=== PATIENT | male | born 1945 | race Caucasian/White ===

== ENCOUNTER 2018-04-04 06:10 | Day surgery (SDC) | payer BC ==
[2018-04-03 11:31] VITALS: BMI 27.3
[~2018-04-04 06:10] MED LIST: BUPIVACAINE HCL/PF (5 MG/ML) 30 ML VIAL IJ ONE
[2018-04-04] MEDS ORDERED: LIDOCAINE 1%/EPI 1:100000 (20 ML MULTI DOSE VIAL) ONE (07:36)
[2018-04-04] MEDS ORDERED: BUPIVACAINE HCL/PF 0.5% (5MG/ML) 10 ML VIAL ONE (07:37)
[2018-04-04] MEDS ORDERED: LIDOCAINE HCL/PF 2% SDV 5ML VIAL ONE (07:54)
[2018-04-04] MEDS ORDERED: KETOROLAC TROMETHAMINE 30 MG/1 ML VIAL ONE (07:54)
[2018-04-04] MEDS ORDERED: PROPOFOL 20 ML ONE ×2 (07:55)
[2018-04-04] MEDS ORDERED: MIDAZOLAM HCL 2 MG/2 ML SINGLE DOSE VIAL ONE (07:55)
--- NOTE | 2018-04-04 08:03 | HP ---
[facility] - Chief Complaint Chief Complaint: R KNEE PAIN History Source: Patient - Past Medical History Allergies/Adverse Reactions: Allergies Allergy/AdvReac Type Severity Reaction Status Date / Time allopurinol Allergy Intermediate Rash Verified 04/03/18 11:31 - Current Medications Current Medications: Home Medications Medication Instructions Recorded Aspirin [ASA -] 650 mg PO PRN PRN 04/03/18 Febuxostat [Uloric -] 80 mg PO UTDICT 04/03/18 [facility] Physical Exam - Physical Examination Vital Signs: Vital Signs Period Temp Pulse Resp BP Sys/Vance Pulse Ox Last 24 Hr 97.7 F-97.7 F 69-69 20-20 157-157/94-94 96 Extremities: Other (+ R JOINT LINE TENDERNESS) [facility] Impression/Plan - Impression/Plan Impression: INTERNAL DERANGEMENT R KNEE Operative Procedure: ARTHROSCOPY R KNEE Date to be Performed: 04/04/18
[2018-04-04] MEDS ORDERED: LIDOCAINE 2%/EPINEPHRINE 1:100000 (50 ML MD VIAL) PNB ONE (08:22)
[2018-04-04] MEDS ORDERED: DEXAMETHASONE SOD PHOSPHATE 4 MG/1 ML VIAL ONE (08:23)
[2018-04-04] MEDS ORDERED: ACETAMINOPHEN 500 MG TABLET (FP) PO PRN (08:52)
[2018-04-04] MEDS ORDERED: oxyCODONE HCL 5 MG TABLET PO PRN (08:52)
[2018-04-04] MEDS ORDERED: ONDANSETRON 4 MG/2 ML VIAL IVPUSH PRN (08:52)
--- NOTE | 2018-04-04 08:56 | OP ---
Operative Note - Note: Operative Date: 04/04/18 Pre-Operative Diagnosis: INETRNAL DERANGEMENT R KNEE Operation: ARTHROSCOPY RIGHT KNEE WITH PARTIAL MM AND LM Post-Operative Diagnosis: Same as Pre-op Surgeon: Otto Roa Anesthesia: General Operative Report Dictated: Yes
[2018-04-04] MEDS ORDERED: LACTATED RINGERS SOLUTION 1,000 ML IV SCH (09:00)
[2018-04-04 09:29] VITALS: TEMP 97.9
--- NOTE | 2018-04-04 09:34 | OP ---
DATE OF OPERATION: 04/04/2018 PREOPERATIVE DIAGNOSIS: Internal derangement, right knee. POSTOPERATIVE DIAGNOSIS: Internal derangement, right knee. PROCEDURE: Arthroscopy, right knee, with partial medial and lateral meniscectomy. SURGICAL ATTENDING: Otto Roa MD ANESTHESIA: General LMA. CLOSURE: Nylon 4-0. COMPLICATIONS: None. CONDITION: To recovery room in stable condition. DESCRIPTION OF OPERATIVE PROCEDURE: Patient taken to the operating room on April 04, 2018. General anesthesia with LMA was administered by the anesthesiologist. Right lower extremity was prepped and draped in the usual sterile fashion. Medial and lateral infrapatellar portal sites were infiltrated with 1% Xylocaine with epinephrine. Both portals were then made with a 15 blade followed by a blunt trocar. The scope trocar was placed in the lateral infrapatellar portal and up into the suprapatellar pouch. The knee was then inflated with a cocktail of 10 mL of 1% Xylocaine, 10 mL of 0.5% Marcaine, 20 mL of arthroscopic saline with the fluid being infused through the trocar. After allowing the anesthetic to work inside the knee the procedure was performed. The pouch was visualized to be clean. The medial and lateral gutters were visualized to be clean. The undersurface of the patella and trochlea were visualized to be intact. With valgus stress on the knee the medial compartment was entered. The medial meniscus was visualized and probed, found to have a complex tear on its posterior horn. It was debrided back to smooth stable meniscal tissue using a meniscal biter and arthroscopic shaver. The medial femoral condyle was run and found to be intact as was the medial tibial plateau. At 90 degrees the ACL was visualized, probed and found to be intact. In the figure-4 position the lateral compartment was entered. The lateral meniscus was found to have some radial tears of its midportion. This was debrided back to smooth stable meniscal tissue using a meniscal biter and arthroscopic shaver. Lateral femoral condyle was run and found to be intact as was the lateral tibial plateau. The knee was irrigated with copious amounts of irrigation. The fluid was drained from the knee. Portals were closed with 4-0 nylon. Prior to their closure 20 mL of 0.5% Marcaine was infused through the cannula for postoperative analgesia. A sterile pressure dressing was placed over the knee. Patient awakened from anesthesia and transferred to the recovery room in stable condition. No complication. Estimated blood loss negligible. Isaías [id number]
[2018-04-04] MEDS ORDERED: oxyCODONE HCL 5 MG TABLET ONE (09:52)
[2018-04-04] MEDS ORDERED: oxyCODONE HCL 5 MG TABLET PO ONE ×2 (10:00)
[2018-04-04 12:55] VITALS: BP 145/87; PULSE 75
--- NOTE | 2018-04-07 16:40 | PATH ---
Surgical Pathology Report Patient Name: SIERRA ISSA [facility]. Rec. #: [id number] /Age/Gender: 1945 (Age: 73) / M Account: [id number] Location: [facility] SURGICAL Taken: 04/04/2018 Received: 04/04/2018 Reported: 04/07/2018 Physicians: Otto Roa M.D. Specimen(s) Received RIGHT KNEE SHAVINGS Clinical History Right knee tear Final Diagnosis RIGHT KNEE SHAVINGS: SYNOVIAL TISSUE AND FIBROCARTILAGINOUS TISSUE WITH FIBROSIS AND DEGENERATIVE CHANGE. Electronically Signed Lawrence Tobin M.D. Gross Description Received in formalin, labeled "right knee shavings," is a 4.0 x 3.5 x 0.3 cm. aggregate of wilcox-yellow soft tissue fragments. A real estate representative portion is submitted in one cassette. /04/04/201804/04/2018
== END 2018-04-04 11:45 | disposition home or self-care (01) ==
LOC: JASU-SURG 06:10
PROVIDERS: ATTEND Orthopaedic Surgery
PROC: 0SBC4ZZ Excision of Right Knee Joint, Percutaneous Endoscopic Approach (ICD-10-PCS; 2018-04-04)
PROC: 0SBC4ZZ Excision of Right Knee Joint, Percutaneous Endoscopic Approach (ICD-10-PCS; principal; 2018-04-04 08:00)
DX: M23.300 Other meniscus derangements, unspecified lateral meniscus, right knee (principal); M23.303 Other meniscus derangements, unspecified medial meniscus, right knee
CPT/HCPCS: 88304-TC; 94760